=== PATIENT | female | born 1955 | race Caucasian/White ===

== ENCOUNTER 2017-01-25 19:37 | Emergency (ER) | payer MEDICARE, BC ==
[2017-01-25 20:50] LABS: CHLORIDE,CL 105 mmol/L (101-111); SODIUM,NA 139 mmol/L (135-145)
[2017-01-25] MEDS ORDERED: LORazepam 0.5 MG Tab PO ONE (20:57)
[2017-01-25] MEDS ORDERED: LORazepam 0.5 MG Tab ONE (20:57)
--- NOTE | 2017-01-25 21:09 | EDM.PDOC ---
ED HPI GENERAL MEDICAL PROBLEM - General Chief Complaint: General Stated Complaint: ANXIETY ATTACK Time Seen by Provider: 01/25/17 20:10 Source of Information: Reports: Patient, Family History Limitations: Reports: No limitations - History of Present Illness INITIAL COMMENTS - FREE TEXT/NARRATIVE: C/o increasing frequency duration and intensity of panic attacks. Notes feeling overwhelmed and depressed. Under family stress with divorce of son and assisting with care of his children and caring for multiple ill family members. Has been seen by PCP for difficulty with sleep and resumed ambien. Noted improvement initially. Last night did not sleep well. Denies chest pain, feels like not getting enough air, notes had to go outside few over weekend to get air. Symptoms usually last under 15minutes, tonight over an hour, feels better lying down. Did try to get into clinic today but provider is out this week. Bilateral Hand Pain Score (Numeric/FACES): 9 - Related Data Allergies Allergy/AdvReac Type Severity Reaction Status Date / Time codeine Allergy Airway Verified 01/25/17 19:43 Tightness propoxyphene Allergy Stomach Verified 01/25/17 19:43 Upset trazodone Allergy Headache Verified 01/25/17 19:43 Home Meds: Home Meds Alendronate [Fosamax] 70 mg PO Q7D@0600 01/25/17 [History] Aspirin [Ecotrin] 81 mg PO DAILY 01/25/17 [History] Ca Carbonate/Vitamin D3/Vit K [Calcium + D Soft Chewable Tab] 1 each PO BID [History] Cholecalciferol (Vitamin D3) [Vitamin D3] 1,000 units PO DAILY 01/25/17 [History ] Estrogens, Conjugated [Premarin] 0.3 mg PO DAILY 01/25/17 [History] Fish Oil/[place]-3 Fatty Acids [Fish Oil] 2 gm PO TID 01/25/17 [History] Gabapentin [Neurontin] 300 mg PO TID 01/25/17 [History] Levothyroxine [Synthroid] 100 mcg PO ACBREAKFAST 01/25/17 [History] Meloxicam 15 mg PO DAILY 01/25/17 [History] Multivitamin [Daily Radha] 1 each PO DAILY 01/25/17 [History] Omeprazole 20 mg PO DAILY 01/25/17 [History] SUMAtriptan [Imitrex] 100 mg PO ONETIME PRN 01/25/17 [History] Zolpidem [Ambien] 5 mg PO BEDTIME 01/25/17 [History] tiZANidine [Zanaflex] 4 mg PO DAILY 01/25/17 [History] traMADol [Ultram] 50 mg PO BEDTIME 01/25/17 [History] Past Medical History HEENT History: Reports: None Cardiovascular History: Reports: High cholesterol Respiratory History: Reports: None Gastrointestinal History: Reports: GERD Genitourinary History: Reports: None ELECTROLOGIST History: Reports: Musculoskeletal History: Reports: Fibromyalgia, Osteoarthritis, RA Neurological History: Reports: Migraines Psychiatric History: Reports: Anxiety Endocrine/Metabolic History: Reports: Hypothyroidism Hematologic History: Reports: None Immunologic History: Reports: None Oncologic (Cancer) History: Reports: None Dermatologic History: Reports: None - Infectious Disease History Infectious Disease History: Reports: Chicken pox, Measles, Mumps - Past Surgical History HEENT Surgical History: Reports: None Respiratory Surgical History: Reports: None GI Surgical History: Reports: Appendectomy, Cholecystectomy Female Surgical History: Reports: section, Hysterectomy, Tubal ligation Oncologic Surgical History: Reports: None Social & Family History - Family History Family Medical History: Noncontributory - Tobacco Use Smoking Status *Q: Never Smoker - Caffeine Use Caffeine Use: Reports: Coffee - Recreational Drug Use Recreational Drug Use: No ED ROS GENERAL - Review of Systems Review Of Systems: See Below Constitutional: Reports: no symptoms HEENT: Reports: No symptoms Respiratory: Reports: shortness of breath Cardiovascular: Reports: No symptoms GI/Abdominal: Reports: No symptoms Skin: Reports: no symptoms Neurological: Reports: no symptoms Psychiatric: Reports: Anxiety, Depression. Denies: Suicidal ideation ED EXAM, GENERAL - Physical Exam Exam: See Below Exam Limited By: No limitations General Appearance: alert, anxious Eye Exam: bilateral eye: EOMI, PERRL Ears: normal external exam, normal TMs Nose: normal inspection Throat/Mouth: Normal inspection Head: atraumatic, normocephalic Neck: normal inspection Respiratory/Chest: no respiratory distress, lungs clear Cardiovascular: normal peripheral pulses, regular rate, rhythm GI/Abdominal: normal bowel sounds Extremities: normal inspection Neurological: alert, oriented, normal cognition Psychiatric: anxious, tearful Skin Exam: Warm, Dry, Intact, Normal color, No rash Course - Vital Signs Last Recorded V/S: Last Vital Signs Temp 97.6 F 01/25/17 21:12 Pulse 85 01/25/17 21:12 Resp 18 01/25/17 21:12 BP 130/72 01/25/17 21:12 Pulse Ox 98 01/25/17 21:12 - Orders/Labs/Meds Orders: Active Orders 24 hr Category Date Time Status EKG Documentation Completion [RC] URGENT Care 01/25/17 20:10 Active Labs: Laboratory Tests 01/25/17 01/25/17 01/25/17 Range/Units 20:20 20:20 20:20 WBC 7.0 (5.0-10.0) 10^3/uL RBC 4.08 L (4.2-5.4) 10^6/uL Hgb 12.8 (12.0-16.0) g/dL Hct 37.6 (37.0-47.0) % MCV 92.2 (80-100) fL MCH 31.4 (27.0-34.0) pg MCHC 34.0 (33.0-35.0) g/dL Plt Count 264 (150-450) 10^3/uL Neut % (Auto) 57.6 (42.2-75.2) % Lymph % (Auto) 35.9 (20.5-50.1) % [place] % (Auto) 5.8 (2-8) % Eos % (Auto) 0.4 L (1.0-3.0) % Baso % (Auto) 0.3 (0.0-1.0) % D-Dimer, Quantitative 284 (0-400) ng/mL Sodium 139 (135-145) mmol/L Potassium 3.6 (3.6-5.0) mmol/L Chloride 105 (101-111) mmol/L Carbon Dioxide 24.0 (21.0-31.0) mmol/L Anion Gap 13.6 BUN 12 (7-18) mg/dL Creatinine 0.5 L (0.6-1.3) mg/dL Est Cr Clr Drug Dosing 93.45 mL/min Estimated GFR (MDRD) > 60 BUN/Creatinine Ratio 24.00 Glucose 105 (74-105) mg/dL Calcium 9.5 (8.4-10.2) mg/dl Total Bilirubin 0.6 (0.2-1.0) mg/dL AST 36 (10-42) IU/L ALT 31 (10-60) IU/L Alkaline Phosphatase 49 (42-121) IU/L Troponin I < 0.02 (0.00-0.02) ng/ml Total Protein 7.6 (6.7-8.2) g/dl Albumin 4.2 (3.2-5.5) g/dl Globulin 3.4 Albumin/Globulin Ratio 1.24 Meds: Medications Discontinued Medications Generic Name Dose Route Start Last Admin Trade Name William PRN Reason Stop Dose Admin Lorazepam Confirm 01/25/17 20:57 01/25/17 21:17 Ativan Administered 01/25/17 20:58 Not Given Dose 1 mg .ROUTE .STK-MED ONE Departure - Departure Time of Disposition: 21:04 Disposition: Home, Self-Care 01 Condition: good Clinical Impression: Anxiety and depression Instructions: Panic Attacks, [id number] Referrals: Kori Cardona PA [Primary Care Provider] - Forms: ED Department Discharge Additional Instructions: ativan 0.5mg one every 6 hours as needed for anxiety # 2 home Rx #6 follow up in clinic - My Orders Last 24 Hours: My Active Orders 01/25/17 20:10 EKG Documentation Completion [RC] URGENT - Assessment/Plan Last 24 Hours: My Active Orders 01/25/17 20:10 EKG Documentation Completion [RC] URGENT
[2017-01-25 21:13] VITALS: BP 130/72
--- NOTE | 2017-01-26 15:21 | EKG ---
01/25/2017 - VIVIANA SOLIS - TIME: 2014 hours. EKG shows normal sinus rhythm, 78 beats per minute. [facility] /[id number]
== END 2017-01-25 21:13 | disposition home or self-care (01) ==
LOC: DL.ED 19:37
DX: F41.8 Other specified anxiety disorders (principal); Z79.82 Long term (current) use of aspirin; Z79.899 Other long term (current) drug therapy; E78.00 Pure hypercholesterolemia, unspecified; K21.9 Gastro-esophageal reflux disease without esophagitis; M19.90 Unspecified osteoarthritis, unspecified site; M06.9 Rheumatoid arthritis, unspecified; E03.9 Hypothyroidism, unspecified; Z94.9 Transplanted organ and tissue status, unspecified; Z90.710 Acquired absence of both cervix and uterus; Z98.51 Tubal ligation status
CPT/HCPCS: 36415; 80053; 84484; 85025; 85379; 93005; 93010; 99283; A9270-GY

== ENCOUNTER 2023-10-11 19:14 | Emergency (ER) | payer MEDICARE, BC ==
[2023-10-11 19:41] VITALS: BP 151/99; PULSE 104
[2023-10-11 20:52] LABS: BASOPHILS PERCENT AUTO 0.6 % (0.0-1.0); HEMATOCRIT 35.5 % (37.0-47.0); LYMPHOCYTES PERCENT AUTO 17.2 % (20.5-50.1); MEAN CORPUSCULAR HEMOGLOBIN 31.7 pg (27.0-34.0); MEAN CORPUSCULAR HGB CONC 33.8 g/dL (33.0-35.0); MEAN CORPUSCULAR VOLUME 93.7 fL (80-100); MONOCYTES PERCENT AUTO 2.7 % (2-8); NEUTROPHILS PERCENT AUTO 79.5 % (42.2-75.2); PLATELET COUNT,PLT 392 10^3/uL (150-450); RED BLOOD CELL COUNT 3.79 10^6/uL (4.2-5.4); WHITE BLOOD CELL COUNT,WBC 7.9 10^3/uL (5.0-10.0)
[2023-10-11 20:53] LABS: APPEARANCE,URINE CLEAR (CLEAR); BILIRUBIN,URINE NEGATIVE (NEGATIVE); COLOR,URINE YELLOW (YELLOW); GLUCOSE,URINE NEGATIVE (NEGATIVE); KETONES,URINE NEGATIVE (NEGATIVE); LEUKOCYTE ESTERASE,URINE NEGATIVE (NEGATIVE); NITRITE,URINE NEGATIVE (NEGATIVE); OCCULT BLOOD,URINE TRACE-INTACT (NEGATIVE); PROTEIN,URINE NEGATIVE (NEGATIVE); UROBILINOGEN,URINE 0.2 mg/dL (0.2-1.0)
[2023-10-11 20:59] LABS: AMPHETAMINES,URINE NEGATIVE (NEGATIVE); BARBITURATES,URINE NEGATIVE (NEGATIVE); BENZODIAZEPINE,URINE NEGATIVE (NEGATIVE); MDMA (ECSTASY), URINE NEGATIVE (NEGATIVE); METHADONE,URINE NEGATIVE (NEGATIVE); METHAMPHETAMINES,URINE NEGATIVE (NEGATIVE); OPIATES,URINE NEGATIVE (NEGATIVE); OXYCODONE,URINE NEGATIVE (NEGATIVE); PHENCYCLIDINE,URINE NEGATIVE (NEGATIVE); TCA,URINE NEGATIVE (NEGATIVE)
[2023-10-11 21:03] LABS: BACTERIA,URINE FEW /HPF (0-FEW/HPF); EPITHELIAL CELLS,URINE FEW /HPF (NOT SEEN); WBC,URINE 0-5 /HPF (0-5/HPF)
[2023-10-11] MEDS ORDERED: Famotidine 20 MG Tab PO ONE (21:17)
[2023-10-11] MEDS ORDERED: diphenhydrAMINE 50 MG Cap PO ONE (21:17)
[2023-10-11 21:18] LABS: LACTIC ACID 1.4 mmol/L (0.4-2.0)
[2023-10-11 21:25] LABS: A/G RATIO 0.9; ALANINE AMINOTRANSFERASE,ALT 40 U/L (14-59); ALBUMIN 3.4 g/dL (3.4-5.0); ALKALINE PHOSPHATASE 63 U/L (46-116); ANION GAP 11.3 mEq/L (7-13); ASPARTATE AMNIOTRANSFERASE,AST 19 U/L (15-37); BILIRUBIN TOTAL 0.3 mg/dL (0.2-1.0); BLOOD UREA NITROGEN,BUN 11 mg/dL (7-18); BUN/CREATININE RATIO 13.6 (No establ ref range); CALCIUM 8.7 mg/dL (8.5-10.1); CARBON DIOXIDE,CO2 28 mmol/L (21-32); CHLORIDE,CL 105 mmol/L (98-107); CREATININE 0.81 mg/dL (0.55-1.02); GLUCOSE RANDOM 117 mg/dL (70-99); MAGNESIUM 2.2 mg/dL (1.8-2.4); POTASSIUM,K 4.3 mmol/L (3.5-5.1); PROTEIN TOTAL,TP 7.1 g/dL (6.4-8.2); SODIUM,NA 140 mmol/L (136-145); TSH ULTRASENSITIVE 0.21 uIU/mL (0.36-3.74)
[2023-10-11 21:25] LABS: CORONAVIRUS COVID-19 NAA NEGATIVE (NEGATIVE); INFLUENZA A NAA NEGATIVE (NEGATIVE); INFLUENZA B NAA NEGATIVE (NEGATIVE); RESPIRATORY SYNCYTIAL VIR NAA NEGATIVE (NEGATIVE)
[2023-10-11 21:28] LABS: C-REACTIVE PROTEIN < 0.50 ng/dL (<=0.50); ESTIMATED GFR 80 mL/min (>=60); ETHANOL BLOOD MEDICAL < 3 mg/dL (0)
[2023-10-11] MEDS ORDERED: Doxycycline Monohydrate 100 MG Cap PO ONE (22:23)
== END 2023-10-11 23:32 | disposition home or self-care (01) ==
LOC: DL.ED 19:14
DX: J18.9 Pneumonia, unspecified organism (principal); R94.6 Abnormal results of thyroid function studies; E78.00 Pure hypercholesterolemia, unspecified; K21.9 Gastro-esophageal reflux disease without esophagitis; E03.9 Hypothyroidism, unspecified; Z90.49 Acquired absence of other specified parts of digestive tract; Z79.82 Long term (current) use of aspirin; Z79.899 Other long term (current) drug therapy; Z90.710 Acquired absence of both cervix and uterus; Z88.8 Allergy status to other drugs, medicaments and biological substances; Z88.5 Allergy status to narcotic agent; Z88.1 Allergy status to other antibiotic agents
CPT/HCPCS: 0241U; 36415; 71045; 80053; 80305-QW; 80307; 81001; 83605; 83735; 84443; 84484; 85025; 86140; 93005; 93010; 99284; A9270-GY; Q0163